=== PATIENT | female | born 1990 | race African-American/Black ===

== ENCOUNTER 2025-01-30 11:43 | Emergency (ER) | payer SELFPAY | END 2025-01-30 12:37 | disposition home or self-care (01) | LOC: CSHERS 11:43 | DX: L01.00 Impetigo, unspecified (principal); I10 Essential (primary) hypertension; F17.210 Nicotine dependence, cigarettes, uncomplicated | CPT/HCPCS: 99282 ==

== ENCOUNTER 2025-03-05 12:54 | Emergency (ER) | payer SELFPAY ==
[2025-03-05 14:13] LABS: Glucose, Urine (Dipstick) Normal (Negative); Leukocyte 25 (Negative); Protein, Urine (Dipstick) Negative (Neg-Trace); Specific Gravity, Urine 1.010 (1.005-1.030)
[2025-03-05] MEDS ORDERED: cefTRIAXone (ROCEPHIN) 500 MG VIAL ONE (14:28)
[2025-03-05 14:47] LABS: Bacteria/HPF Rare-Few HPF (None Seen); CAUTI Indications for Culture Pelvic or flank pain; WBC/HPF 0-3 HPF (0-3)
[2025-03-05 14:48] LABS: Urine Culture Reflex No No
[2025-03-06 11:25] LABS: Chlam.trachomatis by PCR,Urine Not Detected (NotDetected); GC N.gonorrhoeae PCR,UrineVOID Not Detected (NotDetected)
[2025-03-06 14:16] LABS: Chlamydia by PCR, Vaginal Swab Not Detected (NotDetected); GC by PCR, Vaginal Swab Not Detected (NotDetected)
== END 2025-03-05 15:27 | disposition home or self-care (01) ==
LOC: CSHERS 12:54
DX: N76.0 Acute vaginitis (principal); B96.89 Other specified bacterial agents as the cause of diseases classified elsewhere; B37.31 Acute candidiasis of vulva and vagina; I10 Essential (primary) hypertension; F17.210 Nicotine dependence, cigarettes, uncomplicated
CPT/HCPCS: 81001; 87480; 87491; 87510; 87591; 87660; 96372; 99283; J0696